=== PATIENT | female | born 1970 | race Caucasian/White ===

== ENCOUNTER 2022-10-25 04:20 | Day surgery (SDC) | payer OTHER ==
[2022-10-21 11:56] VITALS: BMI 24.5
[2022-10-25] MEDS ORDERED: MIDAZOLAM HCL 2 MG/2 ML SINGLE DOSE VIAL ONE ×2 (07:20→08:35)
[2022-10-25] MEDS ORDERED: FENTANYL CITRATE/PF 50 MCG/ML VIAL ONE ×7 (07:20→11:29)
[2022-10-25] MEDS ORDERED: PROPOFOL 40 ML ONE (07:20)
[2022-10-25] MEDS ORDERED: LIDOCAINE HCL/PF 2% SDV 5ML VIAL ONE ×2 (07:20→07:22)
[2022-10-25] MEDS ORDERED: ROCURONIUM BROMIDE 50 MG/5 ML SYRINGE ONE ×2 (07:23→09:57)
[2022-10-25] MEDS ORDERED: SUCCINYLCHOLINE CHLORIDE 200 MG/10 ML SYRINGE ONE (07:23)
[2022-10-25] MEDS ORDERED: PHENYLEPHRINE HCL 10 MG/1 ML SINGLE DOSE VIAL ONE (07:23)
[2022-10-25] MEDS ORDERED: BUPIVACAINE LIPOSOME/PF (EXPAREL) 266 MG/20 ML VIAL ONE (07:26)
[2022-10-25] MEDS ORDERED: BUPIVACAINE HCL/PF 0.25% (2.5MG/ML) 10 ML VIAL ONE (07:26)
[2022-10-25] MEDS ORDERED: TRANEXAMIC ACID 1000 MG/10 ML VIAL IVPUSH ONE (07:52)
[2022-10-25] MEDS ORDERED: PHENAZOPYRIDINE HCL 100 MG TABLET (FP) PO ONE (07:52)
[2022-10-25] MEDS ORDERED: GABAPENTIN 300 MG CAPSULE PO ONE (07:52)
[2022-10-25] MEDS ORDERED: ACETAMINOPHEN 1000 MG/100 ML BAG IVPB ONE ×3 (07:52→11:10)
[2022-10-25] MEDS ORDERED: CEFAZOLIN 2 GM in DEXTROSE 5%-WATER - 100 ML IVPB ONE (07:52)
[2022-10-25 07:54] LABS: EPI CELLS 27 /uL (0-25.1); HYALINE CASTS 1 /uL (0-3.1); URINE APPEARANCE CLOUDY; URINE BACTERIA 69 /uL (0-1359); URINE BILIRUBIN NEGATIVE (NEGATIVE); URINE COLOR YELLOW; URINE GLUCOSE (UA) NEGATIVE (NEGATIVE); URINE KETONE NEGATIVE (NEGATIVE); URINE LEUK ESTERASE NEGATIVE (NEGATIVE); URINE NITRITE NEGATIVE (NEGATIVE); URINE PROTEIN NEGATIVE (NEGATIVE); URINE RBC 77 /uL (0-23.9); URINE UROBILINOGEN 0.2 mg/dL (0.2-1.0); URINE WBC 5 /uL (0-25.8)
[2022-10-25] MEDS ORDERED: DEXAMETHASONE SOD PHOSPHATE 4 MG/1 ML VIAL ONE ×2 (08:52)
[2022-10-25] MEDS ORDERED: ceFAZolin SODIUM 1 GM VIAL ONE (08:52)
[2022-10-25] MEDS ORDERED: ONDANSETRON 4 MG/2 ML VIAL ONE ×2 (08:52→13:04)
[2022-10-25] MEDS ORDERED: ceFAZolin SODIUM 1 GM VIAL IVPB ONE (08:54)
[2022-10-25] MEDS ORDERED: KETAMINE HCL 500 MG/10 ML VIAL ONE (09:00)
[2022-10-25] MEDS ORDERED: NEOSTIGMINE METHYLSULFATE 0.5 MG/ML - 10 ML MDV ONE (10:29)
[2022-10-25] MEDS ORDERED: GLYCOPYRROLATE 0.2 MG/1 ML VIAL ONE (10:29)
[2022-10-25] MEDS ORDERED: ACETAMINOPHEN INJECTION 100 ML IVPB ONE (11:08)
[2022-10-25] MEDS ORDERED: FENTANYL CITRATE/PF 50 MCG/ML VIAL IVPUSH PRN (11:09)
[2022-10-25] MEDS ORDERED: ONDANSETRON 4 MG/2 ML VIAL IVPUSH PRN ×2 (11:09→11:27)
[2022-10-25] MEDS ORDERED: LACTATED RINGERS SOLUTION 1,000 ML IV SCH (11:15)
[2022-10-25] MEDS ORDERED: oxyCODONE HCL 5 MG TABLET PO PRN ×2 (11:27)
[2022-10-25] MEDS ORDERED: SIMETHICONE 80 MG TAB.CHEW (FP) PO PRN (11:27)
[2022-10-25] MEDS ORDERED: BISACODYL 5 MG TABLET.DR (FP) PO PRN (11:27)
[2022-10-25] MEDS ORDERED: DOCUSATE SODIUM 100 MG CAPSULE (FP) PO PRN (11:27)
[2022-10-25] MEDS ORDERED: HYDROmorphone *PCA* 10MG/50ML DISP.SYRIN PCA SCH (11:45)
[2022-10-25] MEDS ORDERED: LACTATED RINGERS SOLUTION 1,000 ML/1,000 ML INFUS.BAG IV SCH (11:45)
[2022-10-25] MEDS ORDERED: ONDANSETRON 4 MG/2 ML VIAL IVPUSH ONE (13:07)
[2022-10-25] MEDS ORDERED: oxyCODONE HCL 5 MG TABLET ONE (13:12)
[2022-10-25] MEDS ORDERED: oxyCODONE HCL 5 MG TABLET PO ONE (13:15)
[2022-10-25] MEDS: CEFAZOLIN 1 GM in DEXTROSE 5%-WATER - 50 ML IVPB SCH (16:26)
[2022-10-25] MEDS: IBUPROFEN 800 MG/8 ML IJ IVPB SCH (17:48)
[2022-10-25 19:23] LABS: HEMATOCRIT 37.1 % (32.4-45.2); HEMOGLOBIN 12.1 GM/dL (10.7-15.3); MCH 30.3 pg (25.7-33.7); MCHC 32.7 g/dl (32.0-36.0); MEAN CELL VOLUME 92.4 fl (80-96); MEAN PLT VOLUME 8.9 fl (7.5-11.1); PLATELET COUNT 234 10^3/uL (134-434); RBC 4.01 M/mm3 (3.60-5.2); RDW 13.1 % (11.6-15.6); WHITE BLOOD COUNT 9.4 K/mm3 (4.0-10.0)
[2022-10-25 19:51] LABS: BLOOD UREA NITROGEN 9.6 mg/dL (7-18); CALCIUM 8.2 mg/dL (8.5-10.1)
[2022-10-25 19:55] LABS: CREATININE 0.6 mg/dL (0.55-1.3)
[2022-10-25] MEDS: ACETAMINOPHEN 500 MG TABLET (FP) PO SCH (20:22)
[2022-10-26] MEDS: CEFAZOLIN 1 GM in DEXTROSE 5%-WATER - 50 ML IVPB SCH (01:18)
[2022-10-26] MEDS: IBUPROFEN 800 MG/8 ML IJ IVPB SCH (01:42)
[2022-10-26] MEDS: ACETAMINOPHEN 500 MG TABLET (FP) PO SCH ×2 (05:30→13:02)
[2022-10-26] MEDS ORDERED: FERROUS SO4 325 MG TABLET (FP) PO SCH (10:00)
[2022-10-26] MEDS ORDERED: ENOXAPARIN NA (PORCINE) 40 MG/0.4 ML DISP.SYRIN SQ SCH (10:00)
[2022-10-26] MEDS ORDERED: IBUPROFEN 600 MG TABLET (FP) PO SCH (10:00)
[2022-10-26 10:54] LABS: HEMATOCRIT 39.1 % (32.4-45.2); HEMOGLOBIN 12.7 GM/dL (10.7-15.3); MCH 30.1 pg (25.7-33.7); MCHC 32.5 g/dl (32.0-36.0); MEAN CELL VOLUME 92.5 fl (80-96); MEAN PLT VOLUME 8.9 fl (7.5-11.1); PLATELET COUNT 291 10^3/uL (134-434); RBC 4.23 M/mm3 (3.60-5.2); RDW 13.6 % (11.6-15.6); WHITE BLOOD COUNT 7.8 K/mm3 (4.0-10.0)
[2022-10-26 11:14] LABS: BLOOD UREA NITROGEN 8.2 mg/dL (7-18)
[2022-10-26 11:17] LABS: CREATININE 0.8 mg/dL (0.55-1.3)
[2022-10-26 14:48] VITALS: BP 154/69; PULSE 103; RESP 17; TEMP 98
== END 2022-10-26 15:30 | disposition home or self-care (01) ==
LOC: JASU-SURG 04:20 → JASUSAT 04:20 → J8W 13:38 → JASUSAT 10-26 15:30
PROVIDERS: ATTEND Obstetrics & Gynecology
PROC: 0UT9FZZ Resection of Uterus, Via Natural or Artificial Opening With Percutaneous Endoscopic Assistance (ICD-10-PCS; 2022-10-25)
PROC: 8E0W4CZ Robotic Assisted Procedure of Trunk Region, Percutaneous Endoscopic Approach (ICD-10-PCS; 2022-10-25)
PROC: 0UB14ZZ Excision of Left Ovary, Percutaneous Endoscopic Approach (ICD-10-PCS; 2022-10-25)
PROC: 0UT9FZZ Resection of Uterus, Via Natural or Artificial Opening With Percutaneous Endoscopic Assistance (ICD-10-PCS; principal; 2022-10-25 07:30)
PROC: 0UT7FZZ Resection of Bilateral Fallopian Tubes, Via Natural or Artificial Opening With Percutaneous Endoscopic Assistance (ICD-10-PCS; 2022-10-25 07:30)
DX: D25.9 Leiomyoma of uterus, unspecified (principal); N72 Inflammatory disease of cervix uteri; N83.12 Corpus luteum cyst of left ovary; N80.03 Adenomyosis of the uterus
CPT/HCPCS: 58554; 58662; S2900; 36415; 80048; 81003; 81025; 85027; 86850; 86900; 86901; 88302-TC; 88305-TC; 88307-TC; 94760